=== PATIENT | female | born 1960 | race Caucasian/White ===

== ENCOUNTER 2018-07-01 14:14 | Inpatient (IN) | payer MEDICAID, OTHER ==
[~2018-07-01] VITALS: Ht 157.5 cm; Wt 79.3 kg
[~2018-07-01 14:14] MED LIST: NOCURR
[2018-07-01 15:14] LABS: GLUCOSE,POINT OF CARE 92 MG/DL (70-110)
[2018-07-01] MEDS ORDERED: DiphenhydrAMINE HCL 50 MG/ML VIAL IM ONE (15:30)
[2018-07-01] MEDS ORDERED: HALOPERIDOL LACTATE 5 MG/ML VIAL IM ONE (15:30)
[2018-07-01] MEDS ORDERED: LORazepam 2 MG/ML VIAL IM ONE (15:30)
[2018-07-01 15:31] LABS: BASOPHILS % (AUTO) 1.1 % (0.0-2.0); EOSINOPHILS % (AUTO) 3.6 % (1.0-6.0); HEMATOCRIT 38.7 % (36-46); HEMOGLOBIN 13.4 g/dL (12.0-16.0); LYMPHOCYTES # (AUTO) 2.1 K/uL (1.0-4.8); LYMPHOCYTES % (AUTO) 31.8 % (22.0-44.0); MEAN CORPUSCULAR HEMOGLOBIN 30.8 pg (26.0-34.0); MEAN CORPUSCULAR HGB CONC 34.7 G/dL (31.0-37.0); MEAN CORPUSCULAR VOLUME 89 fL (80-100); MONOCYTES # (AUTO) 0.5 K/uL (0.1-1.0); MONOCYTES % (AUTO) 7.3 % (2.0-9.0); NEUTROPHILS # (AUTO) 3.8 K/uL (1.8-7.7); NEUTROPHILS % (AUTO) 56.2 % (40.0-70.0); PLATELET COUNT (AUTO) 219 K/uL (150-450); RED BLOOD CELL COUNT(AUTO) 4.36 MIL/uL (4.00-5.20); RED CELL DISTRIBUTION WIDTH 15.4 % (11.5-14.5)
[2018-07-01 16:05] LABS: ANION GAP 14 mmol/L (8-16); CALCIUM, TOTAL 8.7 mg/dL (8.8-10.5); CARBON DIOXIDE 22 mmol/L (22-29); CHLORIDE 105 mmol/L (98-107); CREATININE 0.94 mg/dL (0.60-1.30); GLOMERULAR FILTR. RATE CALC > 60 mL/min (>60); GLUCOSE,RANDOM 113 mg/dL (70-110); POTASSIUM 3.7 mmol/L (3.5-5.1); SODIUM SERUM 141 mmol/L (136-145); UREA NITROGEN, BLOOD 18 mg/dL (7-18)
[2018-07-01 16:10] LABS: ALBUMIN 3.6 g/dL (3.4-5.0); ALKALINE PHOSPHATASE 108 U/L (46-116); BILIRUBIN,TOTAL 0.3 mg/dL (0.1-1.0); TOTAL PROTEIN, SERUM 7.1 g/dL (6.4-8.2)
[2018-07-01 17:30] LABS: ALANINE AMINOTRANSFERASE 30 U/L (12-78); ASPARTATE AMINOTRANSFERASE 30 U/L (15-37)
[2018-07-01] MEDS ORDERED: HALOPERIDOL 5 MG TABLET PO PRN (18:15)
[2018-07-01] MEDS ORDERED: LORazepam 2 MG TABLET PO PRN (18:15)
[2018-07-01] MEDS ORDERED: ZOLPIDEM TARTRATE 10 MG TABLET PO PRN (18:15)
[2018-07-01 18:30] LABS: AMPHET/METH SCREEN,URINE NEGATIVE (NEGATIVE); BARBITURATE SCREEN, URINE NEGATIVE (NEGATIVE); BENZODIAZEPINES SCREEN,URINE POSITIVE (NEGATIVE); CANNABINOID SCREEN,URINE NEGATIVE (NEGATIVE); COCAINE SCREEN,URINE NEGATIVE (NEGATIVE); METHADONE SCREEN, URINE NEGATIVE (NEGATIVE); OPIATE SCREEN,URINE NEGATIVE (NEGATIVE); PHENCYCLIDINE SCREEN,URINE NEGATIVE (NEGATIVE)
[2018-07-01 19:30] VITALS: BP 100/57
[2018-07-01 20:30] VITALS: BP 95/53
[2018-07-01 21:30] VITALS: BP 98/61
[2018-07-01 22:30] VITALS: BP 99/61
[2018-07-01 23:30] VITALS: BP 102/60
[2018-07-02] VITALS (7 sets, daily range): BP systolic 100–110; BP diastolic 62–68
[2018-07-02] MEDS ORDERED: LORazepam 2 MG TABLET PO PRN (07:00)
[2018-07-02 08:03] LABS: CHOL/HDL RATIO 7.1 (3.9-5.7); CHOLESTEROL 290 mg/dL (131-200); HDL CHOLESTEROL 41 mg/dL (40-60); TRIGLYCERIDES 1865 mg/dL (15-150)
[2018-07-02] MEDS: LORazepam 2 MG TABLET PO SCH ×4 (09:59→20:53)
[2018-07-02] MEDS ORDERED: ALBUTEROL SULFATE HFA 90 MCG/PUFF 8 GM INHALER IH PRN (11:45)
[2018-07-02] MEDS ORDERED: MAG HYDROX/AL HYDROX/SIMETH ES 30 ML SUSPENSION UDCUP PO PRN (11:45)
[2018-07-02] MEDS ORDERED: PETROLATUM,WHITE 71 GM JELLY TP PRN (11:45)
[2018-07-02] MEDS ORDERED: MAGNESIUM HYDROXIDE SUSPENSION 30 ML UDCUP PO PRN (11:45)
[2018-07-02] MEDS ORDERED: NICOTINE 14 MG/24 HOUR PATCH TD PRN (11:45)
[2018-07-02] MEDS ORDERED: ONDANSETRON HCL 4 MG TABLET PO PRN (11:45)
[2018-07-02] MEDS ORDERED: GuaiFENesin/D-METHORPHAN [SUGAR-FREE] 200-20MG/10 ML SYRUP UDCUP PO PRN (11:45)
[2018-07-02] MEDS ORDERED: LOPERAMIDE HCL 2 MG CAPSULE PO PRN (11:45)
[2018-07-02] MEDS ORDERED: DOCUSATE SODIUM 100 MG CAPSULE PO PRN (11:45)
[2018-07-02] MEDS: IBUPROFEN 400 MG TABLET PO PRN (13:25)
[2018-07-02] MEDS ORDERED: QUEtiapine FUMARATE 100 MG TABLET PO PRN (13:30)
[2018-07-02] MEDS: ACETAMINOPHEN 325 MG TABLET PO PRN (17:13)
[2018-07-02] MEDS: SIMVASTATIN 40 MG TABLET PO SCH (21:00)
[2018-07-03 00:30] VITALS: BP 142/91
[2018-07-03 08:08] VITALS: BP 138/95
[2018-07-03] MEDS: LORazepam 2 MG TABLET PO SCH ×4 (08:11→21:29)
[2018-07-03] MEDS: PARoxetine HCL 20 MG TABLET PO SCH (08:12)
[2018-07-03 20:26] VITALS: BP 135/81
[2018-07-03] MEDS: QUEtiapine FUMARATE 100 MG TABLET PO SCH (21:29)
[2018-07-03] MEDS: SIMVASTATIN 40 MG TABLET PO SCH (21:29)
[2018-07-03 22:47] VITALS: BP 132/83
[2018-07-04 02:06] VITALS: BP 128/82
[2018-07-04] MEDS ORDERED: LORazepam 1 MG TABLET PO PRN (07:00)
[2018-07-04 08:23] VITALS: BP 112/92
[2018-07-04 08:24] VITALS: BP 112/92
[2018-07-04] MEDS: PARoxetine HCL 20 MG TABLET PO SCH (08:47)
[2018-07-04] MEDS: LORazepam 1 MG TABLET PO SCH ×4 (08:47→20:34)
[2018-07-04 10:26] VITALS: BP 120/80
[2018-07-04] MEDS: IBUPROFEN 400 MG TABLET PO PRN (10:30)
[2018-07-04] MEDS: ACETAMINOPHEN 325 MG TABLET PO PRN (20:34)
[2018-07-04] MEDS: QUEtiapine FUMARATE 100 MG TABLET PO SCH (20:34)
[2018-07-04 20:35] VITALS: BP 107/70
[2018-07-04] MEDS: SIMVASTATIN 40 MG TABLET PO SCH (20:35)
[2018-07-04 20:48] VITALS: BP 107/70
[2018-07-05 03:51] VITALS: BP 117/72
[2018-07-05] MEDS: PARoxetine HCL 20 MG TABLET PO SCH (08:33)
[2018-07-05] MEDS: LORazepam 1 MG TABLET PO PRN ×2 (08:39→12:48)
[2018-07-05 11:19] VITALS: BP 119/76
[2018-07-05] MEDS ORDERED: PARO20TA24 PO (11:21)
[2018-07-05] MEDS ORDERED: QUET100T PO (11:22)
[2018-07-05] MEDS ORDERED: SIMV-261 PO (12:48)
[2018-07-05] MEDS: IBUPROFEN 400 MG TABLET PO PRN (12:48)
[2018-07-05 16:26] VITALS: BP 109/69
== END 2018-07-05 16:45 | disposition home or self-care (01) | DRG 751 ==
LOC: EMS 14:22 → 3EC 19:22
PROVIDERS: ADMIT Psychiatry & Neurology Psychiatry; ATTEND Psychiatry & Neurology Psychiatry
DX: F33.2 Major depressive disorder, recurrent severe without psychotic features (principal); R45.851 Suicidal ideations; Z78.1 Physical restraint status; D64.9 Anemia, unspecified; F10.20 Alcohol dependence, uncomplicated; E78.5 Hyperlipidemia, unspecified; F41.9 Anxiety disorder, unspecified; F17.210 Nicotine dependence, cigarettes, uncomplicated; Z91.5 Personal history of self-harm; Z88.5 Allergy status to narcotic agent; Z90.49 Acquired absence of other specified parts of digestive tract; Z71.41 Alcohol abuse counseling and surveillance of alcoholic
CPT/HCPCS: 96372; 99285; G0480; J1200; J1630; J2060; Q0162

== ENCOUNTER 2018-12-13 12:26 | Emergency (ER) | payer MEDICAID, OTHER ==
[~2018-12-13] VITALS: Ht 134.6 cm; Wt 72.7 kg
[~2018-12-13 12:26] MED LIST changes: +DISU250 PO; +MIRT15 PO; -NOCURR; +PARO20TA24 PO; +PRAZ1 PO; +QUET100T PO
[2018-12-13 12:44] LABS: GLUCOSE,POINT OF CARE 117 MG/DL (70-110)
[2018-12-13] MEDS ORDERED: QUET300T2 PO (14:28)
[2018-12-13] MEDS ORDERED: LORazepam 1 MG TABLET PO ONE (14:30)
[2018-12-13 16:06] LABS: AMPHET/METH SCREEN,URINE NEGATIVE (NEGATIVE); BARBITURATE SCREEN, URINE NEGATIVE (NEGATIVE); BENZODIAZEPINES SCREEN,URINE NEGATIVE (NEGATIVE); CANNABINOID SCREEN,URINE NEGATIVE (NEGATIVE); COCAINE SCREEN,URINE NEGATIVE (NEGATIVE); METHADONE SCREEN, URINE NEGATIVE (NEGATIVE); OPIATE SCREEN,URINE NEGATIVE (NEGATIVE)
[2018-12-13 16:07] LABS: PHENCYCLIDINE SCREEN,URINE NEGATIVE (NEGATIVE)
[2018-12-13 17:00] LABS: BASOPHILS % (AUTO) 0.9 % (0.0-2.0); EOSINOPHILS % (AUTO) 3.2 % (1.0-6.0); HEMATOCRIT 39.3 % (36-46); HEMOGLOBIN 13.6 g/dL (12.0-16.0); LYMPHOCYTES % (AUTO) 44.6 % (22.0-44.0); MEAN CORPUSCULAR HEMOGLOBIN 32.3 pg (26.0-34.0); MEAN CORPUSCULAR HGB CONC 34.7 G/dL (31.0-37.0); MEAN CORPUSCULAR VOLUME 93 fL (80-100); MONOCYTES # (AUTO) 0.2 K/uL (0.1-1.0); MONOCYTES % (AUTO) 5.2 % (2.0-9.0); NEUTROPHILS % (AUTO) 46.1 % (40.0-70.0); PLATELET COUNT (AUTO) 186 K/uL (150-450); RED BLOOD CELL COUNT(AUTO) 4.21 MIL/uL (4.00-5.20)
[2018-12-13] MEDS ORDERED: ACETAMINOPHEN 325 MG TABLET PO ONE (17:00)
[2018-12-13 17:15] LABS: ANION GAP 10 mmol/L (8-16); CALCIUM, TOTAL 8.8 mg/dL (8.8-10.5); CARBON DIOXIDE 26 mmol/L (22-29); CHLORIDE 101 mmol/L (98-107); CREATININE 0.76 mg/dL (0.60-1.30); GLOMERULAR FILTR. RATE CALC > 60 mL/min (>60); GLUCOSE,RANDOM 105 mg/dL (70-110); POTASSIUM 3.9 mmol/L (3.5-5.1); SODIUM SERUM 137 mmol/L (136-145); UREA NITROGEN, BLOOD 14 mg/dL (7-18)
[2018-12-13 17:22] LABS: ALANINE AMINOTRANSFERASE 42 U/L (12-78); ALBUMIN 3.3 g/dL (3.4-5.0); ALKALINE PHOSPHATASE 106 U/L (46-116); ASPARTATE AMINOTRANSFERASE 33 U/L (15-37); BILIRUBIN,TOTAL 0.3 mg/dL (0.1-1.0); TOTAL PROTEIN, SERUM 6.8 g/dL (6.4-8.2)
[2018-12-13 17:39] VITALS: BP 111/69
== END 2018-12-13 17:41 | disposition home or self-care (01) ==
LOC: EMS 12:27
DX: S16.1XXA Strain of muscle, fascia and tendon at neck level, initial encounter (principal); M25.551 Pain in right hip; F10.20 Alcohol dependence, uncomplicated; K74.60 Unspecified cirrhosis of liver; F17.210 Nicotine dependence, cigarettes, uncomplicated; Z88.5 Allergy status to narcotic agent; Z90.49 Acquired absence of other specified parts of digestive tract; Z79.899 Other long term (current) drug therapy; V49.9XXA Car occupant (driver) (passenger) injured in unspecified traffic accident, initial encounter; Y93.89 Activity, other specified; Y92.488 Other paved roadways as the place of occurrence of the external cause; Y99.8 Other external cause status
CPT/HCPCS: 36415; 72040; 73521; 80053; 80307; 82962; 85025; 99285; G0480

== ENCOUNTER 2018-12-15 13:34 | Inpatient (IN) | payer MEDICAID, OTHER ==
[~2018-12-15] VITALS: Ht 152.4 cm; Wt 73.7 kg
[~2018-12-15 13:34] MED LIST changes: -QUET100T PO; +QUET300T2 PO
[2018-12-15 15:10] LABS: BASOPHILS % (AUTO) 0.8 % (0.0-2.0); EOSINOPHILS % (AUTO) 5.9 % (1.0-6.0); HEMATOCRIT 40.9 % (36-46); HEMOGLOBIN 13.9 g/dL (12.0-16.0); LYMPHOCYTES # (AUTO) 1.5 K/uL (1.0-4.8); LYMPHOCYTES % (AUTO) 33.1 % (22.0-44.0); MEAN CORPUSCULAR HEMOGLOBIN 32.4 pg (26.0-34.0); MEAN CORPUSCULAR HGB CONC 33.9 G/dL (31.0-37.0); MEAN CORPUSCULAR VOLUME 95 fL (80-100); MONOCYTES # (AUTO) 0.3 K/uL (0.1-1.0); MONOCYTES % (AUTO) 6.3 % (2.0-9.0); NEUTROPHILS # (AUTO) 2.4 K/uL (1.8-7.7); NEUTROPHILS % (AUTO) 53.9 % (40.0-70.0); PLATELET COUNT (AUTO) 194 K/uL (150-450); RED BLOOD CELL COUNT(AUTO) 4.28 MIL/uL (4.00-5.20); RED CELL DISTRIBUTION WIDTH 13.3 % (11.5-14.5)
[2018-12-15 15:26] LABS: ANION GAP 10 mmol/L (8-16); CALCIUM, TOTAL 9.2 mg/dL (8.8-10.5); CARBON DIOXIDE 28 mmol/L (22-29); CHLORIDE 104 mmol/L (98-107); CREATININE 0.73 mg/dL (0.60-1.30); GLOMERULAR FILTR. RATE CALC > 60 mL/min (>60); GLUCOSE,RANDOM 98 mg/dL (70-110); POTASSIUM 3.7 mmol/L (3.5-5.1); SODIUM SERUM 142 mmol/L (136-145); UREA NITROGEN, BLOOD 13 mg/dL (7-18)
[2018-12-15 15:30] LABS: AMPHET/METH SCREEN,URINE NEGATIVE (NEGATIVE); BARBITURATE SCREEN, URINE NEGATIVE (NEGATIVE); BENZODIAZEPINES SCREEN,URINE NEGATIVE (NEGATIVE); CANNABINOID SCREEN,URINE NEGATIVE (NEGATIVE); COCAINE SCREEN,URINE NEGATIVE (NEGATIVE); METHADONE SCREEN, URINE NEGATIVE (NEGATIVE); OPIATE SCREEN,URINE NEGATIVE (NEGATIVE)
[2018-12-15 15:30] LABS: ALANINE AMINOTRANSFERASE 38 U/L (12-78); ALBUMIN 3.5 g/dL (3.4-5.0); ALKALINE PHOSPHATASE 105 U/L (46-116); ASPARTATE AMINOTRANSFERASE 26 U/L (15-37); BILIRUBIN,TOTAL 0.3 mg/dL (0.1-1.0)
[2018-12-15 15:31] LABS: PHENCYCLIDINE SCREEN,URINE NEGATIVE (NEGATIVE)
[2018-12-15] MEDS ORDERED: HALOPERIDOL 5 MG TABLET PO PRN (16:15)
[2018-12-15] MEDS ORDERED: ZOLPIDEM TARTRATE 10 MG TABLET PO PRN (16:15)
[2018-12-15 19:30] VITALS: BP 145/82
[2018-12-15 20:30] VITALS: BP 122/82
[2018-12-15] MEDS ORDERED: PETROLATUM,WHITE 71 GM JELLY TP PRN (21:15)
[2018-12-15] MEDS ORDERED: ONDANSETRON HCL 4 MG TABLET PO PRN (21:15)
[2018-12-15] MEDS ORDERED: CloNIDine HCL 0.1 MG TABLET PO PRN (21:15)
[2018-12-15] MEDS ORDERED: GuaiFENesin/D-METHORPHAN [SUGAR-FREE] 200-20MG/10 ML SYRUP UDCUP PO PRN (21:15)
[2018-12-15] MEDS ORDERED: DOCUSATE SODIUM 100 MG CAPSULE PO PRN (21:15)
[2018-12-15] MEDS ORDERED: MAG HYDROX/AL HYDROX/SIMETH ES 30 ML SUSPENSION UDCUP PO PRN (21:15)
[2018-12-15] MEDS ORDERED: MAGNESIUM HYDROXIDE SUSPENSION 30 ML UDCUP PO PRN (21:15)
[2018-12-15] MEDS ORDERED: ACETAMINOPHEN 325 MG TABLET PO PRN (21:15)
[2018-12-15] MEDS ORDERED: ALBUTEROL SULFATE HFA 90 MCG/PUFF 8 GM INHALER IH PRN (21:15)
[2018-12-15 21:31] VITALS: BP 120/75
[2018-12-15 22:28] VITALS: BP 117/75
[2018-12-15] MEDS: IBUPROFEN 400 MG TABLET PO PRN (22:30)
[2018-12-15 22:33] VITALS: BP 117/75
[2018-12-16] VITALS (9 sets, daily range): BP systolic 103–134; BP diastolic 61–90
[2018-12-16] MEDS: IBUPROFEN 400 MG TABLET PO PRN ×2 (08:56→16:26)
[2018-12-16 09:02] LABS: ALANINE AMINOTRANSFERASE 29 U/L (12-78); ALKALINE PHOSPHATASE 88 U/L (46-116); ANION GAP 5 mmol/L (8-16); ASPARTATE AMINOTRANSFERASE 22 U/L (15-37); BILIRUBIN,TOTAL 0.3 mg/dL (0.1-1.0); CALCIUM, TOTAL 8.9 mg/dL (8.8-10.5); CARBON DIOXIDE 30 mmol/L (22-29); CHLORIDE 101 mmol/L (98-107); CHOL/HDL RATIO 5.8 (3.9-5.7); CHOLESTEROL 210 mg/dL (131-200); CREATININE 0.68 mg/dL (0.60-1.30); GLOMERULAR FILTR. RATE CALC > 60 mL/min (>60); GLUCOSE,RANDOM 90 mg/dL (70-110); HDL CHOLESTEROL 36 mg/dL (40-60); SODIUM SERUM 136 mmol/L (136-145); THYROID STIMULATING HORMONE 1.91 uIU/mL (0.36-3.74); TOTAL PROTEIN, SERUM 6.2 g/dL (6.4-8.2); TRIGLYCERIDES 538 mg/dL (15-150); UREA NITROGEN, BLOOD 18 mg/dL (7-18)
[2018-12-16 09:10] LABS: BASOPHILS % (AUTO) 1.1 % (0.0-2.0); EOSINOPHILS % (AUTO) 9.9 % (1.0-6.0); HEMATOCRIT 38.6 % (36-46); HEMOGLOBIN 13.1 g/dL (12.0-16.0); LYMPHOCYTES # (AUTO) 1.7 K/uL (1.0-4.8); LYMPHOCYTES % (AUTO) 41.8 % (22.0-44.0); MEAN CORPUSCULAR HEMOGLOBIN 32.4 pg (26.0-34.0); MEAN CORPUSCULAR HGB CONC 34.1 G/dL (31.0-37.0); MEAN CORPUSCULAR VOLUME 95 fL (80-100); MONOCYTES # (AUTO) 0.4 K/uL (0.1-1.0); MONOCYTES % (AUTO) 9.5 % (2.0-9.0); NEUTROPHILS # (AUTO) 1.5 K/uL (1.8-7.7); NEUTROPHILS % (AUTO) 37.7 % (40.0-70.0); PLATELET COUNT (AUTO) 168 K/uL (150-450); RED BLOOD CELL COUNT(AUTO) 4.06 MIL/uL (4.00-5.20); RED CELL DISTRIBUTION WIDTH 12.9 % (11.5-14.5)
[2018-12-16 09:42] LABS: HEMOGLOBIN A1C 5.9 % (4.5-6.2)
[2018-12-16] MEDS ORDERED: LORazepam 2 MG TABLET PO PRN (11:00)
[2018-12-16] MEDS: NICOTINE 14 MG/24 HOUR PATCH TD PRN (12:08)
[2018-12-16] MEDS: VENLAFAXINE HCL 75 MG TABLET PO SCH (16:21)
[2018-12-16] MEDS: LORazepam 2 MG TABLET PO PRN ×2 (16:22→20:25)
[2018-12-16] MEDS: LOPERAMIDE HCL 2 MG CAPSULE PO PRN (16:22)
[2018-12-16] MEDS: SIMVASTATIN 10 MG TABLET PO SCH (20:25)
[2018-12-16] MEDS: QUEtiapine FUMARATE 200 MG TABLET PO SCH (20:25)
[2018-12-17 05:50] VITALS: BP 126/78
[2018-12-17 05:52] VITALS: BP 126/78
[2018-12-17] MEDS ORDERED: LORazepam 2 MG TABLET PO PRN (07:00)
[2018-12-17 08:00] VITALS: BP 126/71
[2018-12-17 08:06] VITALS: BP 126/71
[2018-12-17] MEDS: VENLAFAXINE HCL 75 MG TABLET PO SCH (08:15)
[2018-12-17] MEDS: LORazepam 2 MG TABLET PO SCH ×4 (08:15→20:05)
[2018-12-17] MEDS: LOPERAMIDE HCL 2 MG CAPSULE PO PRN (13:55)
[2018-12-17 16:03] VITALS: BP 126/75
[2018-12-17 16:05] VITALS: BP 126/75
[2018-12-17] MEDS: QUEtiapine FUMARATE 200 MG TABLET PO SCH (20:05)
[2018-12-17] MEDS: SIMVASTATIN 10 MG TABLET PO SCH (20:32)
[2018-12-18 06:18] VITALS: BP 102/76
[2018-12-18 06:20] VITALS: BP 102/76
[2018-12-18 08:05] VITALS: BP 86/52
[2018-12-18 08:58] VITALS: BP 110/66
[2018-12-18 08:59] VITALS: BP 110/66
[2018-12-18] MEDS: LORazepam 2 MG TABLET PO SCH ×4 (09:05→20:18)
[2018-12-18] MEDS: VENLAFAXINE HCL 75 MG TABLET PO SCH (09:05)
[2018-12-18 16:01] VITALS: BP 103/70
[2018-12-18] MEDS: QUEtiapine FUMARATE 200 MG TABLET PO SCH (20:17)
[2018-12-18] MEDS: SIMVASTATIN 10 MG TABLET PO SCH (20:17)
[2018-12-19 06:28] VITALS: BP 102/75
[2018-12-19] MEDS ORDERED: LORazepam 1 MG TABLET PO PRN (07:00)
[2018-12-19 08:02] VITALS: BP 109/72
[2018-12-19 08:04] VITALS: BP 109/72
[2018-12-19] MEDS: LORazepam 1 MG TABLET PO SCH ×4 (08:13→20:15)
[2018-12-19] MEDS: VENLAFAXINE HCL 75 MG TABLET PO SCH (08:13)
[2018-12-19 16:14] VITALS: BP 112/68
[2018-12-19] MEDS: LOPERAMIDE HCL 2 MG CAPSULE PO PRN (16:16)
[2018-12-19] MEDS: SIMVASTATIN 10 MG TABLET PO SCH (20:15)
[2018-12-19] MEDS: QUEtiapine FUMARATE 200 MG TABLET PO SCH (20:15)
[2018-12-20 06:26] VITALS: BP 115/72
[2018-12-20] MEDS ORDERED: LORazepam 1 MG TABLET PO PRN (07:00)
[2018-12-20] MEDS: VENLAFAXINE HCL 75 MG TABLET PO SCH (08:35)
[2018-12-20 16:02] VITALS: BP 110/70
[2018-12-20 17:24] VITALS: BP 110/70
[2018-12-20] MEDS: LOPERAMIDE HCL 2 MG CAPSULE PO PRN (19:10)
[2018-12-20] MEDS: QUEtiapine FUMARATE 200 MG TABLET PO SCH (20:12)
[2018-12-20] MEDS: SIMVASTATIN 10 MG TABLET PO SCH (20:12)
[2018-12-21 07:03] VITALS: BP 121/76
[2018-12-21 07:04] VITALS: BP 121/76
[2018-12-21 08:24] VITALS: BP 92/63
[2018-12-21] MEDS: LOPERAMIDE HCL 2 MG CAPSULE PO PRN (09:00)
[2018-12-21] MEDS: VENLAFAXINE HCL 75 MG TABLET PO SCH (09:00)
[2018-12-21 10:00] VITALS: BP 96/62
[2018-12-21 16:16] VITALS: BP 98/62
[2018-12-21] MEDS: QUEtiapine FUMARATE 200 MG TABLET PO SCH (20:41)
[2018-12-21] MEDS: SIMVASTATIN 10 MG TABLET PO SCH (20:41)
[2018-12-22 06:09] VITALS: BP 108/65
[2018-12-22 08:36] VITALS: BP 122/77
[2018-12-22] MEDS: VENLAFAXINE HCL 75 MG TABLET PO SCH (08:57)
[2018-12-22] MEDS: NICOTINE 14 MG/24 HOUR PATCH TD PRN (08:59)
[2018-12-22] MEDS: LORazepam 2 MG TABLET PO PRN (11:55)
[2018-12-22 16:32] VITALS: BP 108/74
[2018-12-22] MEDS: QUEtiapine FUMARATE 200 MG TABLET PO SCH (21:29)
[2018-12-22] MEDS: SIMVASTATIN 10 MG TABLET PO SCH (21:29)
[2018-12-23] MEDS ORDERED: VENL-193 PO (03:22)
[2018-12-23] MEDS ORDERED: QUET200T PO (03:22)
[2018-12-23 06:31] VITALS: BP 100/65
== END 2018-12-23 07:15 | disposition home or self-care (01) | DRG 750 ==
LOC: EMS 13:35 → B3A 17:40
PROVIDERS: ADMIT Psychiatry & Neurology Psychiatry; ATTEND Psychiatry & Neurology Psychiatry
DX: F25.1 Schizoaffective disorder, depressive type (principal); R45.851 Suicidal ideations; Z59.0 Homelessness; K74.60 Unspecified cirrhosis of liver; Z91.19 Patient's noncompliance with other medical treatment and regimen; D72.819 Decreased white blood cell count, unspecified; E78.5 Hyperlipidemia, unspecified; F19.90 Other psychoactive substance use, unspecified, uncomplicated; K59.00 Constipation, unspecified; F17.210 Nicotine dependence, cigarettes, uncomplicated; G89.29 Other chronic pain; F41.9 Anxiety disorder, unspecified; F10.20 Alcohol dependence, uncomplicated; Z79.899 Other long term (current) drug therapy; Z91.5 Personal history of self-harm; Z88.5 Allergy status to narcotic agent; Z90.49 Acquired absence of other specified parts of digestive tract; Z83.3 Family history of diabetes mellitus; Z82.49 Family history of ischemic heart disease and other diseases of the circulatory system; Z80.9 Family history of malignant neoplasm, unspecified; Z71.41 Alcohol abuse counseling and surveillance of alcoholic; Z71.51 Drug abuse counseling and surveillance of drug abuser; Y90.3 Blood alcohol level of 60-79 mg/100 ml
CPT/HCPCS: 83036; 84443; G0480; Q0162

== ENCOUNTER 2022-11-08 16:50 | Emergency (ER) | payer MEDICAID, OTHER ==
[~2022-11-08] VITALS: Ht 160 cm; Wt 62.7 kg
[~2022-11-08 16:50] MED LIST changes: -DISU250 PO; +DISU250T8 PO; -MIRT15 PO; -PARO20TA24 PO; +QUET200T PO; -QUET300T2 PO; +VENL-193 PO
[2022-11-08 16:58] VITALS: BP 135/86
[2022-11-08] MEDS ORDERED: LACT10SO32 PO (17:05)
[2022-11-08] MEDS ORDERED: PREN-223 PO (17:05)
[2022-11-08] MEDS ORDERED: CETI10TA58 PO (17:05)
[2022-11-08] MEDS ORDERED: PANT40TA54 PO (17:05)
[2022-11-08] MEDS ORDERED: CALC-26 PO (17:05)
== END 2022-11-08 18:25 | disposition left against medical advice (07) ==
LOC: EMS 16:54
DX: R51.9 Headache, unspecified (principal); Z53.21 Procedure and treatment not carried out due to patient leaving prior to being seen by health care provider

== ENCOUNTER 2023-08-08 13:22 | Inpatient (IN) | payer MEDICAID, OTHER ==
[~2023-08-08] VITALS: Ht 152.4 cm; Wt 63.0 kg
[~2023-08-08 13:22] MED LIST changes: +CALC-26 PO; +CETI10TA58 PO; -DISU250T8 PO; +LACT10SO85 PO; +PANT40TA54 PO; -PRAZ1 PO; +PREN-223 PO; -QUET200T PO; -VENL-193 PO; +albuter IH; +azithromycin PO
[2023-08-08] MEDS ORDERED: ALBU18HF12 IH (14:27)
[2023-08-08] MEDS ORDERED: METO-408 PO (14:27)
[2023-08-08] MEDS ORDERED: FOLI-130 PO (14:27)
[2023-08-08] MEDS ORDERED: OMEP20CA12 PO (14:27)
[2023-08-08] MEDS ORDERED: HALOPERIDOL 5 MG TABLET PO PRN (16:00)
[2023-08-08] MEDS ORDERED: ZOLPIDEM TARTRATE 10 MG TABLET PO PRN (16:00)
[2023-08-08 16:05] LABS: BASOPHILS % (AUTO) 1.2 % (0.0-2.0); EOSINOPHILS % (AUTO) 7.7 % (1.0-6.0); HEMATOCRIT 32.5 % (36-46); HEMOGLOBIN 10.5 g/dL (12.0-16.0); LYMPHOCYTES # (AUTO) 1.3 K/uL (1.0-4.8); LYMPHOCYTES % (AUTO) 29.8 % (22.0-44.0); MEAN CORPUSCULAR HEMOGLOBIN 28.3 pg (26.0-34.0); MEAN CORPUSCULAR HGB CONC 32.4 G/dL (31.0-37.0); MEAN CORPUSCULAR VOLUME 87 fL (80-100); MONOCYTES # (AUTO) 0.3 K/uL (0.1-1.0); MONOCYTES % (AUTO) 6.8 % (2.0-9.0); NEUTROPHILS # (AUTO) 2.5 K/uL (1.8-7.7); NEUTROPHILS % (AUTO) 54.5 % (40.0-70.0); PLATELET COUNT (AUTO) 138 K/uL (150-450); RED BLOOD CELL COUNT(AUTO) 3.72 MIL/uL (4.00-5.20); RED CELL DISTRIBUTION WIDTH 21.7 % (11.5-14.5); WHITE BLOOD COUNT (AUTO) 4.5 K/uL (4.5-11.0)
[2023-08-08 16:12] LABS: ANION GAP 13 mmol/L (8-16); CALCIUM, TOTAL 8.3 mg/dL (8.8-10.5); CARBON DIOXIDE 24 mmol/L (22-29); CHLORIDE 100 mmol/L (98-107); CREATININE 0.87 mg/dL (0.60-1.30); GLOMERULAR FILTR. RATE CALC > 60 mL/min (>60); GLUCOSE,RANDOM 87 mg/dL (70-110); POTASSIUM 3.5 mmol/L (3.5-5.1); SODIUM SERUM 137 mmol/L (136-145); UREA NITROGEN, BLOOD 11 mg/dL (7-18)
[2023-08-08 16:17] LABS: ALCOHOL, BLOOD (SERUM) 237 mg/dL (0-10)
[2023-08-08 16:18] LABS: ALANINE AMINOTRANSFERASE 34 U/L (12-78); ALBUMIN 3.3 g/dL (3.4-5.0); ALKALINE PHOSPHATASE 88 U/L (46-116); ASPARTATE AMINOTRANSFERASE 95 U/L (15-37); BILIRUBIN,TOTAL 0.4 mg/dL (0.1-1.0); TOTAL PROTEIN, SERUM 7.3 g/dL (6.4-8.2)
[2023-08-08 17:16] LABS: COVID AG,FIA SOURCE NASAL SWAB
[2023-08-08 17:33] LABS: SARS-COV2 (COVID) ANTIGEN,FIA Negative (Negative)
[2023-08-08 17:52] LABS: PH,URINE DRUG SCREEN 5.5 (5.0-8.0)
[2023-08-08 17:58] LABS: ALCOHOL, URINE DRUG SCREEN POSITIVE (NEGATIVE); AMPHET/METH SCREEN,URINE NEGATIVE (NEGATIVE); BARBITURATE SCREEN, URINE NEGATIVE (NEGATIVE); BENZODIAZEPINES SCREEN,URINE POSITIVE (NEGATIVE); CANNABINOID SCREEN,URINE NEGATIVE (NEGATIVE); COCAINE SCREEN,URINE NEGATIVE (NEGATIVE); METHADONE SCREEN, URINE NEGATIVE (NEGATIVE); OPIATE SCREEN,URINE NEGATIVE (NEGATIVE); PHENCYCLIDINE SCREEN,URINE NEGATIVE (NEGATIVE)
[2023-08-08] MEDS ORDERED: ACETAMINOPHEN 500 MG TABLET PO ONE (18:30)
[2023-08-08] MEDS: LORazepam 2 MG TABLET PO PRN (19:51)
[2023-08-09] MEDS: LORazepam 2 MG TABLET PO PRN ×2 (11:12→18:59)
[2023-08-09 20:26] VITALS: BP 101/65; PULSE 89; RESP 18; TEMP 97.4; O2SAT 95
[2023-08-09 20:30] VITALS: BP 101/65; PULSE 89; RESP 18; TEMP 97.4
[2023-08-10] VITALS (13 sets, daily range): BP systolic 110–152; BP diastolic 17–90; PULSE 78–102; RESP 17–20; TEMP 97.5–98.1; O2SAT 96–98
[2023-08-10] MEDS: OMEPRAZOLE 20 MG CAPSULE PO SCH (06:47)
[2023-08-10] MEDS: LORazepam 2 MG TABLET PO PRN (07:55)
[2023-08-10] MEDS: METOPROLOL SUCCINATE 25 MG ER TABLET PO SCH ×2 (09:20→17:06)
[2023-08-10] MEDS: FOLIC ACID/VIT B COMPLEX AND C TABLET PO SCH (09:21)
[2023-08-10] MEDS ORDERED: TraZODone HCL 50 MG TABLET PO PRN (11:00)
[2023-08-10] MEDS ORDERED: ChlordiazePOXIDE HCL 25 MG CAPSULE PO PRN (11:00)
[2023-08-10] MEDS ORDERED: ALBUTEROL SULFATE 2.5 MG/0.5 ML NEB SOLUTION NEB PRN (13:45)
[2023-08-10] MEDS: ALBUTEROL SULFATE HFA 90 MCG/PUFF 8 GM INHALER IH PRN ×2 (13:59→20:22)
[2023-08-10] MEDS ORDERED: CYANOCOBALAMIN 1,000 MCG/ML VIAL IM ONE (14:00)
[2023-08-10] MEDS ORDERED: ACETAMINOPHEN 325 MG TABLET PO PRN (14:30)
[2023-08-10] MEDS ORDERED: GuaiFENesin/D-METHORPHAN [SUGAR-FREE] 200-20MG/10 ML SYRUP UDCUP PO PRN (14:30)
[2023-08-10] MEDS ORDERED: IBUPROFEN 400 MG TABLET PO PRN (14:30)
[2023-08-10] MEDS ORDERED: LOPERAMIDE HCL 2 MG CAPSULE PO PRN (14:30)
[2023-08-10] MEDS ORDERED: MAGNESIUM HYDROXIDE SUSPENSION 30 ML UDCUP PO PRN (14:30)
[2023-08-10] MEDS ORDERED: DOCUSATE SODIUM 100 MG CAPSULE PO PRN (14:30)
[2023-08-10] MEDS ORDERED: PETROLATUM,WHITE 28 GM JELLY TP PRN (14:30)
[2023-08-10] MEDS ORDERED: MAG HYDROX/AL HYDROX/SIMETH ES 30 ML SUSPENSION UDCUP PO PRN (14:30)
[2023-08-10] MEDS ORDERED: ONDANSETRON HCL 4 MG TABLET PO PRN (14:30)
[2023-08-10] MEDS ORDERED: CloNIDine HCL 0.1 MG TABLET PO PRN (14:30)
[2023-08-10] MEDS ORDERED: NICOTINE 14 MG/24 HOUR PATCH TD PRN (14:30)
[2023-08-10] MEDS: FOLIC ACID 1 MG TABLET PO SCH (14:34)
[2023-08-10] MEDS: THIAMINE 100 MG TABLET PO SCH ×2 (14:34→17:00)
[2023-08-10] MEDS: MULTIVITAMINS WITH MINERALS, THERAPEUTIC TABLET PO SCH (14:34)
[2023-08-10] MEDS: FLUTICASONE/VILANTEROL 200-25 MCG/INH INHALER [14] IH SCH (14:35)
[2023-08-10] MEDS: PredniSONE 20 MG TABLET PO SCH (14:35)
[2023-08-10 19:13] LABS: COVID AG,FIA SOURCE NASAL SWAB
[2023-08-10] MEDS ORDERED: OXYGEN THERAPY IH SCH (20:00)
[2023-08-10 20:10] LABS: SARS-COV2 (COVID) ANTIGEN,FIA Negative (Negative)
[2023-08-10] MEDS ORDERED: QUEtiapine FUMARATE 100 MG TABLET PO SCH (21:00)
[2023-08-10] MEDS ORDERED: FUROSEMIDE 20 MG TABLET PO ONE (21:30)
[2023-08-11] MEDS ORDERED: ALBUTEROL SULFATE 2.5 MG/0.5 ML NEB SOLUTION NEB SCH
[2023-08-11 03:57] VITALS: BP 135/78; PULSE 85; RESP 18; TEMP 97.7; O2SAT 97
[2023-08-11 06:33] LABS: THYROID STIMULATING HORMONE 0.47 uIU/mL (0.36-3.74)
[2023-08-11] MEDS: OMEPRAZOLE 20 MG CAPSULE PO SCH (06:35)
[2023-08-11 06:38] LABS: HEMOGLOBIN A1C 5.1 % (3.8-5.6)
[2023-08-11] MEDS ORDERED: ChlordiazePOXIDE HCL 25 MG CAPSULE PO PRN (07:00)
[2023-08-11] MEDS ORDERED: OXYGEN THERAPY IH SCH (08:00)
[2023-08-11] MEDS: FOLIC ACID/VIT B COMPLEX AND C TABLET PO SCH (08:02)
[2023-08-11] MEDS: FOLIC ACID 1 MG TABLET PO SCH (08:02)
[2023-08-11] MEDS: THIAMINE 100 MG TABLET PO SCH (08:02)
[2023-08-11] MEDS: MULTIVITAMINS WITH MINERALS, THERAPEUTIC TABLET PO SCH (08:03)
[2023-08-11] MEDS: ChlordiazePOXIDE HCL 25 MG CAPSULE PO SCH ×2 (08:03→12:10)
[2023-08-11] MEDS: PredniSONE 20 MG TABLET PO SCH (08:03)
[2023-08-11] MEDS: FLUTICASONE/VILANTEROL 200-25 MCG/INH INHALER [14] IH SCH (08:03)
[2023-08-11 08:25] LABS: CHOL/HDL RATIO 3.5 (3.9-5.7)
[2023-08-11 08:47] VITALS: PULSE 94; RESP 18; O2SAT 96
[2023-08-11] MEDS: ALBUTEROL SULFATE 2.5 MG/0.5 ML NEB SOLUTION NEB SCH ×2 (08:47→16:00)
[2023-08-11] MEDS ORDERED: AZITHROMYCIN 500 MG TABLET PO SCH (09:00)
[2023-08-11 09:04] VITALS: PULSE 92; RESP 18; O2SAT 97
[2023-08-11 09:05] VITALS: BP 120/72; PULSE 71; RESP 18; TEMP 97.7
[2023-08-11] MEDS: METOPROLOL SUCCINATE 25 MG ER TABLET PO SCH (09:25)
[2023-08-11 10:07] VITALS: BP 120/72; PULSE 71; RESP 18; TEMP 97.7; O2SAT 98
[2023-08-11] MEDS ORDERED: ALBU18HF12 IH (13:16)
[2023-08-11] MEDS ORDERED: PRED-554 PO (13:16)
[2023-08-11] MEDS ORDERED: FLUT1BLS IH (13:16)
[2023-08-11] MEDS ORDERED: METO25XL PO (13:16)
[2023-08-11] MEDS ORDERED: AZIT500T4 PO (13:16)
[2023-08-13] MEDS ORDERED: ChlordiazePOXIDE HCL 10 MG CAPSULE PO PRN (07:00)
[2023-08-13] MEDS ORDERED: ChlordiazePOXIDE HCL 10 MG CAPSULE PO SCH (09:00)
[2023-08-14] MEDS ORDERED: ChlordiazePOXIDE HCL 10 MG CAPSULE PO PRN (07:00)
== END 2023-08-11 14:30 | disposition left against medical advice (07) | DRG 751 ==
LOC: EMS 13:24 → 3EC 08-09 20:49
PROVIDERS: ADMIT Psychiatry & Neurology Psychiatry; ATTEND Psychiatry & Neurology Psychiatry
DX: F33.2 Major depressive disorder, recurrent severe without psychotic features (principal); K70.30 Alcoholic cirrhosis of liver without ascites; F10.229 Alcohol dependence with intoxication, unspecified; I10 Essential (primary) hypertension; Z53.21 Procedure and treatment not carried out due to patient leaving prior to being seen by health care provider; Z20.822 Contact with and (suspected) exposure to COVID-19; F17.210 Nicotine dependence, cigarettes, uncomplicated; Z88.5 Allergy status to narcotic agent; Z79.899 Other long term (current) drug therapy; Z90.49 Acquired absence of other specified parts of digestive tract
CPT/HCPCS: 71045; 80053; 80061; 80307; 83036; 84443; 85025; 94640; 99285; G0480; J3420; J3535; Q9967; 36415-L1; 36415-TC; J7613